=== PATIENT | female | born 1955 | race Caucasian/White ===

== ENCOUNTER 2023-05-22 08:57 | Outpatient (RCR) | payer MEDICARE, SELFPAY | END 2023-05-22 23:59 | disposition home or self-care (01) | LOC: RPT 08:57 | PROVIDERS: ATTENDING PHYSICIAN Surgery | DX: I97.2 Postmastectomy lymphedema syndrome (principal); C50.212 Malignant neoplasm of upper-inner quadrant of left female breast; Z17.1 Estrogen receptor negative status [ER-] | CPT/HCPCS: 97110; 97140; 97163 ==

== ENCOUNTER 2023-06-10 07:57 | Outpatient (RCR) | payer MEDICARE, SELFPAY | END 2023-06-10 23:59 | disposition home or self-care (01) | LOC: RPT 07:57 | PROVIDERS: ATTENDING PHYSICIAN Surgery | DX: I97.2 Postmastectomy lymphedema syndrome (principal); C50.212 Malignant neoplasm of upper-inner quadrant of left female breast; Z17.1 Estrogen receptor negative status [ER-]; Z73.6 Limitation of activities due to disability | CPT/HCPCS: 97110; 97140; 97535 ==

== ENCOUNTER 2023-06-29 08:03 | Outpatient (RCR) | payer MEDICARE, SELFPAY | END 2023-07-01 23:59 | disposition home or self-care (01) | LOC: RPT 08:03 | PROVIDERS: ATTENDING PHYSICIAN Surgery | DX: I97.2 Postmastectomy lymphedema syndrome (principal); C50.212 Malignant neoplasm of upper-inner quadrant of left female breast; Z17.1 Estrogen receptor negative status [ER-]; Z73.6 Limitation of activities due to disability; Z90.12 Acquired absence of left breast and nipple | CPT/HCPCS: 97140 ==

== ENCOUNTER → 2023-07-04 09:28 | Outpatient (REF) | payer MEDICARE, SELFPAY ==
[2023-07-04 10:14] LABS: % Basophils 1.1 % (0-2); % Eosinophils 1.3 % (0-6); % Immature Granulocytes 0.3 % (0-0.5); % Lymphocytes 23.8 % (20.5-51.1); % Monocytes 10.2 % (1.7-9.3); % Neutrophils 63.3 % (42.2-75.2); Absolute Basophils 0.1 10^3/uL (0-0.2); Absolute Eosinophils 0.1 10^3/uL (0-0.7); Absolute Lymphocytes 1.9 10^3/uL (1.2-3.4); Absolute Monocytes 0.8 10^3/uL (0.1-0.6); Hematocrit 37.4 % (37.0-47.0); Hemoglobin 12.9 g/dL (12.0-16.0); Mean Corp Hgb Conc. 34.5 g/dL (33.0-37.0); Mean Corpuscular Hgb 33.9 pg (27.0-31.0); Mean Corpuscular Volume 98.2 fL (81.0-99.0); Mean Platelet Volume 9.1 fL (7.4-10.4); Nucleated Red Blood Cells % 0 %; Platelet Count 271 10^3/uL (130-400); Red Blood Cell Count 3.81 10^6/uL (4.20-5.40); White Blood Cell Count 7.9 10^3/uL (4.8-10.8)
== END ==
LOC: REG 09:28
PROVIDERS: ATTENDING PHYSICIAN Internal Medicine Hematology & Oncology; FAMILY PHYSICIAN Family Medicine
DX: C50.112 Malignant neoplasm of central portion of left female breast (principal); D70.9 Neutropenia, unspecified; R11.2 Nausea with vomiting, unspecified
CPT/HCPCS: 36415; 85025

== ENCOUNTER → 2023-07-13 11:10 | Outpatient (REF) | payer MEDICARE, SELFPAY ==
[2023-07-13 11:47] LABS: % Basophils 0.7 % (0-2); % Eosinophils 4.1 % (0-6); % Immature Granulocytes 0.4 % (0-0.5); % Lymphocytes 14.8 % (20.5-51.1); % Monocytes 10.2 % (1.7-9.3); % Neutrophils 69.8 % (42.2-75.2); Absolute Basophils 0.1 10^3/uL (0-0.2); Absolute Eosinophils 0.4 10^3/uL (0-0.7); Absolute Lymphocytes 1.5 10^3/uL (1.2-3.4); Absolute Monocytes 1.1 10^3/uL (0.1-0.6); Absolute Neutrophils 7.2 10^3/uL (1.4-6.5); Hematocrit 40.5 % (37.0-47.0); Hemoglobin 13.9 g/dL (12.0-16.0); Mean Corp Hgb Conc. 34.3 g/dL (33.0-37.0); Mean Corpuscular Hgb 34.8 pg (27.0-31.0); Mean Corpuscular Volume 101.3 fL (81.0-99.0); Mean Platelet Volume 9.1 fL (7.4-10.4); Nucleated Red Blood Cells % 0 %; Platelet Count 203 10^3/uL (130-400); Red Cell Dist. Width 13.6 % (11.5-14.5); White Blood Cell Count 10.4 10^3/uL (4.8-10.8)
[2023-07-13 12:16] LABS: ALT (SGPT) 22 U/L (0-35); AST (SGOT) 23 U/L (14-36); Albumin 4.1 g/dl (3.5-5.0); Alkaline Phosphatase 117 U/L (38-126); Blood Urea Nitrogen 15 mg/dl (7-17); Calcium 9.4 mg/dl (8.4-10.2); Carbon Dioxide 26 mmol/L (22-30); Chloride 106 mmol/L (98-107); Glucose 136 mg/dl (70-99); Potassium 3.9 mmol/L (3.5-5.1); Sodium 137 mmol/L (135-145); Total Bilirubin 0.5 mg/dl (0.2-1.3); Total Protein 6.6 g/dl (6.3-8.2); eGFR > 60.00
== END ==
LOC: REG 11:10
PROVIDERS: ATTENDING PHYSICIAN Internal Medicine Hematology & Oncology; FAMILY PHYSICIAN Family Medicine
DX: C50.112 Malignant neoplasm of central portion of left female breast (principal); D70.9 Neutropenia, unspecified; R11.2 Nausea with vomiting, unspecified
CPT/HCPCS: 36415; 80053; 85025

== ENCOUNTER → 2023-08-03 14:56 | Outpatient (REF) | payer MEDICARE, SELFPAY ==
[2023-08-03 10:14] LABS: % Basophils 0.7 % (0-2); % Eosinophils 2.7 % (0-6); % Immature Granulocytes 0.4 % (0-0.5); % Lymphocytes 19.6 % (20.5-51.1); % Neutrophils 62.6 % (42.2-75.2); Absolute Basophils 0.1 10^3/uL (0-0.2); Absolute Eosinophils 0.3 10^3/uL (0-0.7); Absolute Monocytes 1.4 10^3/uL (0.1-0.6); Absolute Neutrophils 6.2 10^3/uL (1.4-6.5); Hematocrit 33.7 % (37.0-47.0); Hemoglobin 11.8 g/dL (12.0-16.0); Mean Corpuscular Hgb 34.8 pg (27.0-31.0); Mean Corpuscular Volume 99.4 fL (81.0-99.0); Mean Platelet Volume 9.4 fL (7.4-10.4); Nucleated Red Blood Cells % 0 %; Platelet Count 228 10^3/uL (130-400); Red Blood Cell Count 3.39 10^6/uL (4.20-5.40); Red Cell Dist. Width 13.6 % (11.5-14.5); White Blood Cell Count 9.9 10^3/uL (4.8-10.8)
[2023-08-03 10:27] LABS: ALT (SGPT) 18 U/L (0-35); AST (SGOT) 19 U/L (14-36); Albumin 3.8 g/dl (3.5-5.0); Alkaline Phosphatase 100 U/L (38-126); Blood Urea Nitrogen 11 mg/dl (7-17); Calcium 9.3 mg/dl (8.4-10.2); Carbon Dioxide 27 mmol/L (22-30); Chloride 105 mmol/L (98-107); Glucose 108 mg/dl (70-99); Sodium 135 mmol/L (135-145); Total Bilirubin 0.4 mg/dl (0.2-1.3); Total Protein 6.3 g/dl (6.3-8.2); eGFR > 60.00
== END ==
LOC: OIDL 14:56
PROVIDERS: ATTENDING PHYSICIAN Internal Medicine Hematology & Oncology
DX: C50.112 Malignant neoplasm of central portion of left female breast (principal); D70.9 Neutropenia, unspecified; R11.2 Nausea with vomiting, unspecified
CPT/HCPCS: 80053; 85025

== ENCOUNTER → 2023-08-22 09:11 | Outpatient (REF) | payer MEDICARE, SELFPAY ==
[2023-08-22 10:24] LABS: % Basophils 0.8 % (0-2); % Eosinophils 0.7 % (0-6); % Immature Granulocytes 0.3 % (0-0.5); % Lymphocytes 22.5 % (20.5-51.1); % Monocytes 11.2 % (1.7-9.3); % Neutrophils 64.5 % (42.2-75.2); Absolute Basophils 0.1 10^3/uL (0-0.2); Absolute Eosinophils 0.1 10^3/uL (0-0.7); Absolute Lymphocytes 1.6 10^3/uL (1.2-3.4); Absolute Monocytes 0.8 10^3/uL (0.1-0.6); Absolute Neutrophils 4.7 10^3/uL (1.4-6.5); Hematocrit 33.4 % (37.0-47.0); Hemoglobin 11.2 g/dL (12.0-16.0); Mean Corp Hgb Conc. 33.5 g/dL (33.0-37.0); Mean Corpuscular Hgb 34.6 pg (27.0-31.0); Mean Corpuscular Volume 103.1 fL (81.0-99.0); Mean Platelet Volume 9.7 fL (7.4-10.4); Nucleated Red Blood Cells % 0 %; Platelet Count 205 10^3/uL (130-400); Red Blood Cell Count 3.24 10^6/uL (4.20-5.40); Red Cell Dist. Width 14.6 % (11.5-14.5); White Blood Cell Count 7.3 10^3/uL (4.8-10.8)
[2023-08-22 10:45] LABS: ALT (SGPT) 22 U/L (0-35); AST (SGOT) 26 U/L (14-36); Albumin 3.8 g/dl (3.5-5.0); Alkaline Phosphatase 88 U/L (38-126); Blood Urea Nitrogen 10 mg/dl (7-17); Calcium 9.5 mg/dl (8.4-10.2); Carbon Dioxide 21 mmol/L (22-30); Chloride 109 mmol/L (98-107); Glucose 146 mg/dl (70-99); Potassium 3.8 mmol/L (3.5-5.1); Sodium 137 mmol/L (135-145); Total Bilirubin 0.4 mg/dl (0.2-1.3); Total Protein 6.4 g/dl (6.3-8.2); eGFR > 60.00
== END ==
LOC: REG 09:11
PROVIDERS: ATTENDING PHYSICIAN Internal Medicine Hematology & Oncology; FAMILY PHYSICIAN Family Medicine
DX: C50.112 Malignant neoplasm of central portion of left female breast (principal); D70.9 Neutropenia, unspecified; R11.2 Nausea with vomiting, unspecified
CPT/HCPCS: 36415; 80053; 85025

== ENCOUNTER → 2023-09-10 15:27 | Outpatient (REF) | payer MEDICARE, SELFPAY ==
[2023-09-10 16:29] LABS: % Basophils 1.2 % (0-2); % Eosinophils 0.7 % (0-6); % Immature Granulocytes 0.3 % (0-0.5); % Lymphocytes 29.2 % (20.5-51.1); % Monocytes 13.5 % (1.7-9.3); % Neutrophils 55.1 % (42.2-75.2); Absolute Basophils 0.1 10^3/uL (0-0.2); Absolute Eosinophils 0.1 10^3/uL (0-0.7); Absolute Monocytes 0.9 10^3/uL (0.1-0.6); Absolute Neutrophils 3.8 10^3/uL (1.4-6.5); Hematocrit 32.1 % (37.0-47.0); Hemoglobin 10.9 g/dL (12.0-16.0); Mean Corpuscular Hgb 34.8 pg (27.0-31.0); Mean Corpuscular Volume 102.6 fL (81.0-99.0); Mean Platelet Volume 9.3 fL (7.4-10.4); Nucleated Red Blood Cells % 0 %; Platelet Count 182 10^3/uL (130-400); Red Blood Cell Count 3.13 10^6/uL (4.20-5.40); Red Cell Dist. Width 14.6 % (11.5-14.5); White Blood Cell Count 6.8 10^3/uL (4.8-10.8)
== END ==
LOC: REG 15:27
PROVIDERS: ATTENDING PHYSICIAN Internal Medicine Hematology & Oncology; FAMILY PHYSICIAN Family Medicine
DX: C50.112 Malignant neoplasm of central portion of left female breast (principal); D70.9 Neutropenia, unspecified; R11.2 Nausea with vomiting, unspecified
CPT/HCPCS: 36415; 85025

== ENCOUNTER 2023-09-22 15:23 | Outpatient (RCR) | payer MEDICARE, SELFPAY | END 2023-09-22 23:59 | disposition home or self-care (01) | LOC: RPT 15:23 | PROVIDERS: ATTENDING PHYSICIAN Surgery | DX: I97.2 Postmastectomy lymphedema syndrome (principal); C50.212 Malignant neoplasm of upper-inner quadrant of left female breast; Z17.1 Estrogen receptor negative status [ER-]; Z73.6 Limitation of activities due to disability | CPT/HCPCS: 97110; 97140 ==

== ENCOUNTER 2023-10-20 15:37 | Outpatient (RCR) | payer MEDICARE, SELFPAY | END 2023-10-20 23:59 | disposition home or self-care (01) | LOC: RPT 15:37 | PROVIDERS: ATTENDING PHYSICIAN Surgery | DX: I97.2 Postmastectomy lymphedema syndrome (principal); C50.212 Malignant neoplasm of upper-inner quadrant of left female breast; Z73.6 Limitation of activities due to disability; Z17.1 Estrogen receptor negative status [ER-] | CPT/HCPCS: 97110; 97140 ==

== ENCOUNTER → 2023-11-10 15:09 | Outpatient (REF) | payer MEDICARE, SELFPAY ==
[2023-11-10 16:08] LABS: % Basophils 0.5 % (0-2); % Eosinophils 2.2 % (0-6); % Immature Granulocytes 0.2 % (0-0.5); % Lymphocytes 29.7 % (20.5-51.1); % Monocytes 11.7 % (1.7-9.3); % Neutrophils 55.7 % (42.2-75.2); Absolute Eosinophils 0.2 10^3/uL (0-0.7); Absolute Lymphocytes 2.4 10^3/uL (1.2-3.4); Absolute Monocytes 0.9 10^3/uL (0.1-0.6); Absolute Neutrophils 4.5 10^3/uL (1.4-6.5); Hematocrit 39.3 % (37.0-47.0); Hemoglobin 13.6 g/dL (12.0-16.0); Mean Corp Hgb Conc. 34.6 g/dL (33.0-37.0); Mean Corpuscular Hgb 34.2 pg (27.0-31.0); Mean Corpuscular Volume 98.7 fL (81.0-99.0); Mean Platelet Volume 9.2 fL (7.4-10.4); Nucleated Red Blood Cells % 0 %; Platelet Count 185 10^3/uL (130-400); Red Blood Cell Count 3.98 10^6/uL (4.20-5.40); Red Cell Dist. Width 12.2 % (11.5-14.5)
[2023-11-10 16:22] LABS: ALT (SGPT) 16 U/L (0-35); AST (SGOT) 20 U/L (14-36); Albumin 4.2 g/dl (3.5-5.0); Alkaline Phosphatase 120 U/L (38-126); Direct Bilirubin 0.1 mg/dl (0.0-0.4); Total Bilirubin 0.3 mg/dl (0.2-1.3); Total Protein 6.6 g/dl (6.3-8.2)
[2023-11-12 17:57] LABS: CA 27-29 24.5 U/mL (<=39.0)
== END ==
LOC: REG 15:09
PROVIDERS: ATTENDING PHYSICIAN Internal Medicine Hematology & Oncology; FAMILY PHYSICIAN Family Medicine
DX: C50.112 Malignant neoplasm of central portion of left female breast (principal); D70.9 Neutropenia, unspecified; R11.2 Nausea with vomiting, unspecified
CPT/HCPCS: 36415; 80076; 85025; 86300

== ENCOUNTER 2023-11-17 16:35 | Outpatient (RCR) | payer MEDICARE, SELFPAY | END 2023-11-17 23:59 | disposition home or self-care (01) | LOC: RPT 16:35 | PROVIDERS: ATTENDING PHYSICIAN Surgery | DX: C50.212 Malignant neoplasm of upper-inner quadrant of left female breast (principal); Z17.1 Estrogen receptor negative status [ER-]; Z73.6 Limitation of activities due to disability | CPT/HCPCS: 97110; 97112; 97140; 97535 ==

== ENCOUNTER 2023-12-22 16:40 | Outpatient (RCR) | payer MEDICARE, SELFPAY | END 2023-12-22 23:59 | disposition home or self-care (01) | LOC: RPT 16:40 | PROVIDERS: ATTENDING PHYSICIAN Surgery | DX: C50.212 Malignant neoplasm of upper-inner quadrant of left female breast (principal); R26.81 Unsteadiness on feet; Z17.1 Estrogen receptor negative status [ER-]; Z73.6 Limitation of activities due to disability | CPT/HCPCS: 97110; 97112; 97140 ==

== ENCOUNTER 2024-01-19 15:37 | Outpatient (RCR) | payer MEDICARE, SELFPAY | END 2024-01-19 23:59 | disposition home or self-care (01) | LOC: RPT 15:37 | PROVIDERS: ATTENDING PHYSICIAN Surgery | DX: C50.212 Malignant neoplasm of upper-inner quadrant of left female breast (principal); Z17.1 Estrogen receptor negative status [ER-]; R26.81 Unsteadiness on feet; Z73.6 Limitation of activities due to disability | CPT/HCPCS: 97110; 97112; 97140 ==

== ENCOUNTER 2024-02-18 15:49 | Outpatient (RCR) | payer MEDICARE, SELFPAY | END 2024-02-18 23:59 | disposition home or self-care (01) | LOC: RPT 15:49 | PROVIDERS: ATTENDING PHYSICIAN Surgery | DX: I97.2 Postmastectomy lymphedema syndrome (principal); Z17.1 Estrogen receptor negative status [ER-]; C50.212 Malignant neoplasm of upper-inner quadrant of left female breast; Z73.6 Limitation of activities due to disability; R26.81 Unsteadiness on feet | CPT/HCPCS: 97110; 97112; 97140 ==

== ENCOUNTER 2024-03-24 15:36 | Outpatient (RCR) | payer MEDICARE, SELFPAY | END 2024-03-24 23:59 | disposition home or self-care (01) | LOC: RPT 15:36 | PROVIDERS: ATTENDING PHYSICIAN Surgery | DX: C50.212 Malignant neoplasm of upper-inner quadrant of left female breast (principal); I97.2 Postmastectomy lymphedema syndrome (principal); Z17.1 Estrogen receptor negative status [ER-]; Z73.6 Limitation of activities due to disability; R26.81 Unsteadiness on feet; Z90.12 Acquired absence of left breast and nipple | CPT/HCPCS: 97110; 97112; 97140 ==

== ENCOUNTER 2024-04-19 15:36 | Outpatient (RCR) | payer MEDICARE, SELFPAY | END 2024-04-19 23:59 | disposition home or self-care (01) | LOC: RPT 15:36 | PROVIDERS: ATTENDING PHYSICIAN Surgery | DX: I97.2 Postmastectomy lymphedema syndrome (principal); C50.212 Malignant neoplasm of upper-inner quadrant of left female breast (principal); Z17.1 Estrogen receptor negative status [ER-]; R26.81 Unsteadiness on feet; Z73.6 Limitation of activities due to disability; R53.83 Other fatigue; G62.0 Drug-induced polyneuropathy; T45.1X5D Adverse effect of antineoplastic and immunosuppressive drugs, subsequent encounter; Z90.12 Acquired absence of left breast and nipple | CPT/HCPCS: 97110; 97112; 97140 ==

== ENCOUNTER 2024-05-23 15:01 | Outpatient (RCR) | payer MEDICARE, SELFPAY | END 2024-05-23 23:59 | disposition home or self-care (01) | LOC: RPT 15:01 | PROVIDERS: ATTENDING PHYSICIAN Surgery | DX: C50.212 Malignant neoplasm of upper-inner quadrant of left female breast (principal); I97.2 Postmastectomy lymphedema syndrome (principal); Z17.1 Estrogen receptor negative status [ER-]; R42 Dizziness and giddiness; R26.81 Unsteadiness on feet; Z73.6 Limitation of activities due to disability; R53.83 Other fatigue; G62.0 Drug-induced polyneuropathy; T45.1X5D Adverse effect of antineoplastic and immunosuppressive drugs, subsequent encounter; Z90.12 Acquired absence of left breast and nipple | CPT/HCPCS: 97110; 97112; 97140 ==

== ENCOUNTER 2024-06-20 15:39 | Outpatient (RCR) | payer MEDICARE, SELFPAY | END 2024-06-20 23:59 | disposition home or self-care (01) | LOC: RPT 15:39 | PROVIDERS: ATTENDING PHYSICIAN Surgery | DX: C50.212 Malignant neoplasm of upper-inner quadrant of left female breast (principal); Z17.1 Estrogen receptor negative status [ER-]; R26.81 Unsteadiness on feet; R42 Dizziness and giddiness; Z73.6 Limitation of activities due to disability; I97.2 Postmastectomy lymphedema syndrome; R53.83 Other fatigue; G62.0 Drug-induced polyneuropathy; T45.1X5D Adverse effect of antineoplastic and immunosuppressive drugs, subsequent encounter; Z90.12 Acquired absence of left breast and nipple | CPT/HCPCS: 97110; 97112; 97140 ==

== ENCOUNTER 2024-07-18 17:03 | Outpatient (RCR) | payer MEDICARE, SELFPAY | END 2024-07-18 23:59 | disposition home or self-care (01) | LOC: RPT 17:03 | PROVIDERS: ATTENDING PHYSICIAN Surgery | DX: C50.212 Malignant neoplasm of upper-inner quadrant of left female breast (principal); R26.81 Unsteadiness on feet; R42 Dizziness and giddiness; Z17.1 Estrogen receptor negative status [ER-]; Z73.6 Limitation of activities due to disability; I97.2 Postmastectomy lymphedema syndrome; R53.83 Other fatigue; G62.0 Drug-induced polyneuropathy; T45.1X5D Adverse effect of antineoplastic and immunosuppressive drugs, subsequent encounter; Z90.12 Acquired absence of left breast and nipple | CPT/HCPCS: 97110; 97112; 97140 ==

== ENCOUNTER 2024-07-25 15:40 | Outpatient (RCR) | payer MEDICARE, SELFPAY | END 2024-07-26 07:38 | disposition home or self-care (01) | LOC: RPT 15:40 | PROVIDERS: ATTENDING PHYSICIAN Surgery | DX: C50.212 Malignant neoplasm of upper-inner quadrant of left female breast (principal); R26.81 Unsteadiness on feet; R42 Dizziness and giddiness; Z17.1 Estrogen receptor negative status [ER-]; Z73.6 Limitation of activities due to disability; I97.2 Postmastectomy lymphedema syndrome; M54.6 Pain in thoracic spine; R53.83 Other fatigue; G62.0 Drug-induced polyneuropathy; T45.1X5D Adverse effect of antineoplastic and immunosuppressive drugs, subsequent encounter; Z90.12 Acquired absence of left breast and nipple | CPT/HCPCS: 97110; 97112; 97140 ==

== ENCOUNTER → 2024-08-19 08:20 | Outpatient (REF) | payer MEDICARE, SELFPAY ==
[2024-08-19 09:50] LABS: % Basophils 0.5 % (0-2); % Eosinophils 1.8 % (0-6); % Immature Granulocytes 0.2 % (0-0.5); % Lymphocytes 19.9 % (20.5-51.1); % Monocytes 12.4 % (1.7-9.3); % Neutrophils 65.2 % (42.2-75.2); Absolute Basophils 0.1 10^3/uL (0-0.2); Absolute Eosinophils 0.2 10^3/uL (0-0.7); Absolute Monocytes 1.2 10^3/uL (0.1-0.6); Absolute Neutrophils 6.5 10^3/uL (1.4-6.5); Hematocrit 43.5 % (37.0-47.0); Hemoglobin 14.5 g/dL (12.0-16.0); Mean Corp Hgb Conc. 33.3 g/dL (33.0-37.0); Mean Corpuscular Hgb 33.7 pg (27.0-31.0); Mean Corpuscular Volume 101.2 fL (81.0-99.0); Mean Platelet Volume 9.1 fL (7.4-10.4); Nucleated Red Blood Cells % 0 %; Platelet Count 197 10^3/uL (130-400); Red Cell Dist. Width 13.1 % (11.5-14.5); White Blood Cell Count 9.9 10^3/uL (4.8-10.8)
[2024-08-19 10:25] LABS: ALT (SGPT) 27 U/L (0-35); AST (SGOT) 20 U/L (14-36); Alkaline Phosphatase 116 U/L (38-126); Direct Bilirubin 0.1 mg/dl (0.0-0.4); Total Bilirubin 0.6 mg/dl (0.2-1.3); Total Protein 6.3 g/dl (6.3-8.2)
[2024-08-20 23:45] LABS: CA 27-29 32.5 U/mL (<=39.0)
== END ==
LOC: RAD 08:20
PROVIDERS: ATTENDING PHYSICIAN Internal Medicine Hematology & Oncology; FAMILY PHYSICIAN Family Medicine
DX: C50.112 Malignant neoplasm of central portion of left female breast (principal); D70.9 Neutropenia, unspecified; R11.2 Nausea with vomiting, unspecified
CPT/HCPCS: 36415; 76700; 80076; 85025; 86300

== ENCOUNTER → 2025-02-18 08:00 | Outpatient (REF) | payer MEDICARE, SELFPAY ==
[2025-02-18 09:53] LABS: Hematocrit 43.1 % (37.0-47.0); Hemoglobin 14.4 g/dL (12.0-16.0); Mean Corp Hgb Conc. 33.4 g/dL (33.0-37.0); Mean Corpuscular Volume 100.0 fL (81.0-99.0); Nucleated Red Blood Cells % 0 %; Platelet Count 186 10^3/uL (130-400); Red Cell Dist. Width 12.7 % (11.5-14.5)
[2025-02-18 10:17] LABS: ALT (SGPT) 24 U/L (0-35); AST (SGOT) 18 U/L (14-36); Albumin 4.2 g/dl (3.5-5.0); Alkaline Phosphatase 121 U/L (38-126); Blood Urea Nitrogen 15 mg/dl (7-17); Calcium 9.3 mg/dl (8.4-10.2); Carbon Dioxide 27 mmol/L (22-30); Chloride 106 mmol/L (98-107); Glucose 94 mg/dl (70-99); HDL Cholesterol 47 mg/dl; LDL Cholesterol, Calculated 111 mg/dl; Potassium 4.2 mmol/L (3.5-5.1); Sodium 141 mmol/L (135-145); Total Protein 6.4 g/dl (6.3-8.2); Very Low Density Lipoprotein 42 mg/dl (0-30); eGFR > 60.00
[2025-02-20 23:43] LABS: CA 27-29 38.5 U/mL (<=39.0)
== END ==
LOC: REG 08:00
PROVIDERS: ATTENDING PHYSICIAN Internal Medicine; FAMILY PHYSICIAN Family Medicine; OTHER PHYSICIAN Nurse Practitioner Adult Health
DX: I42.9 Cardiomyopathy, unspecified (principal); Z92.29 Personal history of other drug therapy; E78.2 Mixed hyperlipidemia; R73.03 Prediabetes; E78.5 Hyperlipidemia, unspecified; Z79.899 Other long term (current) drug therapy; E87.6 Hypokalemia; C50.112 Malignant neoplasm of central portion of left female breast; D70.9 Neutropenia, unspecified; R11.2 Nausea with vomiting, unspecified
CPT/HCPCS: 36415; 80053; 80061; 82248; 85025; 86300

== ENCOUNTER → 2025-03-02 13:15 | Outpatient (REF) | payer MEDICARE, SELFPAY ==
[2025-03-02 13:45] VITALS: BP 155/68; BP_SYST 96
[2025-03-02 14:48] VITALS: BP 135/70
== END ==
LOC: RADI 13:15
PROVIDERS: ATTENDING PHYSICIAN Internal Medicine Hematology & Oncology; FAMILY PHYSICIAN Family Medicine
DX: Z45.2 Encounter for adjustment and management of vascular access device (principal); C50.112 Malignant neoplasm of central portion of left female breast
CPT/HCPCS: 36590